=== PATIENT | female | born 1990 ===

== ENCOUNTER 2020-12-30 12:19 | Outpatient (CLI) | payer OTHER, SELFPAY ==
[2020-12-30 14:05] LABS: SARS-CoV-2 Ag Negative (Negative)
[2020-12-30 15:57] LABS: SARS-CoV-2 RNA PCR Negative (Negative)
== END 2020-12-30 12:20 | disposition home or self-care (01) ==
LOC: CHSLAB 12:25
PROVIDERS: PCP Family Medicine; Visit Provider Physician Assistant
DX: Z20.822 Contact with and (suspected) exposure to COVID-19 (principal)
CPT/HCPCS: 87426; C9803; U0003; U0005